=== PATIENT | female | born 2000 | race Caucasian/White ===

== ENCOUNTER 2025-07-21 12:07 | Emergency (ER) | payer SELFPAY ==
[2025-07-21 12:20] VITALS: BP 134/75; PULSE 82; RESP 16; TEMP 36.2; O2SAT 100
--- OUTSIDE RECORDS SUMMARY | 2025-07-21 12:56 | XMS_ITS | Clinical Summary ---
Author Organization [facility] Address [address] [place] [id number] Care Team Providers Care Bricklayer Apprentice Name Role Phone Andrew Scott MD Primary Care Provider [phone] Social History Tobacco Use Types Packs/Day Years Used Date Smoking Tobacco: Never Assessed Comments Unknown Sex and Gender Information Value Date Recorded Sex Assigned at Not on file Legal Sex Female 4:33 PM CDT Gender Identity Not on file Sexual Orientation Not on file Plan of Treatment Health Maintenance Due Date Last Done Comments Annual Physical 2003 HPV Vaccines (1 - 3-dose series) 2015 Hepatitis C 2018 Hepatitis B Vaccines (1 of 3 - 19+ 3-dose series) 2019 Cervical Cancer Screening Pa p Smear (Age 21 to 29) Every 3 Years 04/17/2025 04/17/2022 Cervical Cancer Screening 04/17/2025 COVID-19 Vaccine ( - 2024-2 6 season) 2025 Influenza Adult (#1) 2025 DTaP, Tdap and Td Vaccines ( 2 - Td or Tdap) 10/21/2031 10/20/2021 Hepatitis A Vaccines Aged Out No long er eligible based on patient's age to complete this topic Meningococcal B Vaccine Aged Out No l onger eligible based on patient's age to complete this topic Meningococcal Vaccine Aged Out No pilar kip eligible based on patient's age to complete this topic Pneumococcal Vaccine: Pediat rics (0 to 5 Years) and At-Risk Patients (6 to 49 Years) Aged Out No longer eligi ble based on patient's age to complete this topic RSV Immunizations Under 20 Months Aged Out No longer eligible based on patient's age to complete this topic Insurance [facility] Care Teams Bricklayer Apprentice Relationship Specialty Start Date End Date Andrew Scott MD [address] [place] [address] [place] [id number] PCP - General FAMILY PRACTICE 03/27/24
--- OUTSIDE RECORDS SUMMARY | 2025-07-21 12:56 | XMS_ITS | Data Portability ---
Author Organization [facility] Address [address] [place] [address] Care Team Providers Care Manager Of Financial Reporting Name Role Phone BRIT SCOTT Primary Care Provider Assessment Encounter Date Assessment Date Assessment LastModified by Organization Details LastModified Time 12/12/2021 12/12/2021 Patient is ___weeks . Discussed plan. Not available 12/12/2021 12:15:17 01/18/2022 01/18/2022 Normal exam May resume normal activities contraceptive plan-- declines depression and anxiety precautions given. denies SI/HI. declines medication. will work on finding counselor. FU for WWE 2 , [email or web address] Not available 01/18/2022 15:45:58 03/22/2022 03/22/2022 healthy female exam GC/CT/trich done declines further std testing first pap done contraception- declines HPV vaccine-done TSH today. results to pcp to prescribe from now on FU 1 year or prn [email or web address] Not available 03/22/2022 15:07:06 04/17/2022 04/17/2022 repap for insufficient cells no charge visit [email or web address] Not available 04/17/2022 16:02:54 Plan of Treatment Reminders Order Date Submit Date Provider Last Modified By Organization Details Last Modified Time Details Appointments None recorded. Lab TSH, serum or plasma 2021 022 [facility] (Lab), [address], [place], [address], 14:48:58 Referral None recorded. Procedures None recorded. Surgeries None recorded. Imaging None recorded. Medication Orders Euthyrox 50 mcg tablet 2021 [facility] [address], [address], [place], [address], 14:45:37 Patient TargetsNo targets recorded. Patient InstructionsNo instructions recorded. Reason for Referral None Reported. Results Created Date Observation Date Name Description Value Unit Range Abnormal Flag Note LastModifiedBy Organization Detail LastModifiedTime 11/26/1911/25/2021 CULTU RE: GROUP B STREP SCREE N result report SEE RESULT S BELOW Test: Cultu re: Group B Strep Scree n - Vagin al/Re ctal Speci men Sourc e: Vagin a/Rec katrina Speci men Type: Vagin al/Re ctal Speci men Date: 1:46 PM Resul t Date: 2021 10:50 AM Resul t Statu s: Final resul t Abnor mal: No Resul ting Lab: [facility] [address] [facility] [address] Tel: CULTU RE ----- ----- ----- --- No Group B strep isola keenan at 2 days (stephon ctive broth enhan cemen t) Not Available [facility] (Lab) [address], [place], [address], 11/28/2021 11:52:48 12/06/1912/05/2021 TSH, REFLE X FREE T4 TSH 3.47 uIU/m L 0.30-5 .33 Not Available [facility] (Lab) [address], [place], [address], 12/06/2021 05:05:10 03/22/20 22 03/22/2022 T4 FREE T4, free 1.22 NG/dL 0.60-1 .40 Not Available [facility] [address] [place], [address], 03/23/2022 08:24:09 03/22/20 22 03/22/2022 TSH, REFLE X FREE T4 TSH 0.01 uIU/m L 0.30-5 .33 low Not Available [facility] [address] [place], [address], 03/23/2022 08:24:09 03/22/20 22 03/22/2022 IMAGE GUIDE D PAP, REFLE X HPV IF ASCUS ONLY image guided Pap, reflex HPV ASCUS only SEE RESULT S BELOW CASE REPOR T: Cytol ogy Gynec ologi timur Repor t Case: [id number] Autho mariza manuel Provi jose francisco: Meggan Lee, MD Conley cted: 03/22 1614 Order ing Locat ion: [place] Patho logy Recei edy: 03/23 0754 First Scree n: Bonny Pompa ret, CT Rescr een: Florin Alex Speci men: Scree kathleen Pap - Image d, Cervi x STATE MENT OF ADEQU ACY: Unsat isfac tory for evalu ation . FINAL DIAGN OSIS: Unsat isfac tory for evalu ation . Scant squam ous cellu larit y due to exces s inter ferin g blood . Elect david jalloh julien d by Florin Alex on 022 at 10:05 AM ----- ----- ----- ----- ----- ----- ----- ----- ----- ----- ----- ----- ----- ----- ----- ----- ----- ---- COMME NT: Note: This speci men was revie wed by a Cytot echno logis t and/o r Patho logis t (as indic ated in this repor t) after evalu ation using the Thinp rep Imagi ng Syste m. CLINI TIMUR INFOR MATIO N: Menst rual Statu s: LMP (if appli cable ): Clini timur Histo ry/Pr eviou s Pap: Type of Neopl gris (if appli cable ): Signi fican t Clini timur Findi ngs: Other Histo ry: Hormo isaias (if appli cable ): Not Available [facility] [address] [place] [address], [phone], 03/28/2022 11:08:39 03/22/20 22 03/22/2022 TRICH OMONA S VAGIN HALIE (RRNA ) trichomonas vaginalis ribosomal RNA (rrna) Negati ve negati ve Not Available [facility] [address] [place] [address], [phone], 03/28/2022 11:08:39 03/22/20 22 03/22/2022 CT/GC (EVER) , THINP REP VIAL chlamydia trachomatis, PCR Negati ve negati ve Not Available [facility] [address] [place] [address], [phone], 03/28/2022 11:08:40 03/22/20 22 03/22/2022 CT/GC (EVER) , THINP REP VIAL neisseria gonorrhoeae, PCR Negati ve negati ve Not Available [facility] [address] [place] [address], [phone], 03/28/2022 11:08:40 04/17/20 22 04/17/2022 IMAGE GUIDE D PAP, REFLE X HPV IF ASCUS ONLY image guided Pap, reflex HPV ASCUS only SEE RESULT S BELOW CASE REPOR T: Cytol ogy Gynec ologi timur Repor t Case: [id number] Autho mariza jackson Provi jose francisco: Meggan Lee MD Colle cted: 04/17 1711 Order ing Locat ion: [place] Patho [place]y Recei edy: 04/18 0336 First Scree n: DeLuc a, Deborah, CT Rescr een: Nacha mpass ak, Tad kraus, CT Speci men: Scree kathleen Pap - Image d, Cervi x STATE MENT OF ADEQU ACY: Satis facto ry for evalu ation Trans forma tion zone compo nent prese nt FINAL DIAGN OSIS: Negat larry for Intra epith elial Lesio n or Gilberto santiago (NIL) . Elect david jalloh julien d by Gail rose, Tad kraus, CT on 022 at 12:50 PM ----- ----- ----- ----- ----- ----- ----- ----- ----- ----- ----- ----- ----- ----- ----- ----- ----- ---- COMME NT: Note: This speci men was revie wed by a Cytot echno logis t and/o r Patho logis t (as indic ated in this repor t) after evalu ation using the Thinp rep Imagi ng Syste m. CLINI TIMUR INFOR MATIO N: Menst rual Statu s: LMP (if appli cable ): Clini timur Histo ry/Pr eviou s Pap: Type of Neopl gris (if appli cable ): Signi fican t Clini timur Findi ngs: Other Histo ry: Hormo isaias (if appli cable ): PAP EDUCA MORELIA L NOTE: The Pap Test is a scree kathleen test with an inher ent false negat larry rate. Liqui d-bas ed sampl ing may decre ase, but will not elimi naren, false negat larry resul ts. A negat larry resul t does not precl ude the prese nce and/o r devel opmen t of disea se, since the prese nce of abnor mal cells in the sampl e depen ds on the locat ion of the lesio n and sampl ing techn ique. Ez nued regul ar scree kathleen is the best metho d of cance r preve ntion . If repor keenan cytol ogic findi ng do not corre late with physi timur and/o r histo rical findi ngs, furth er inves tigat ion is recom hiram d, as clini cherry laws nted. Not Available [facility] [address], [place], [address], 04/22/2022 13:52:32 11/10/19 22 11/09/2021 non-s tress test No observ ation record ed. [email or web address] [facility] [address], [place], [address], 11/09/2021 17:05:06 Result Notes None recorded. Problems Name Problem SNOMED Code Status Onset Date Resolution Date Notes Provider Name and Address Organization Details Recorded Time Cyst of ovary 62604300 Completed smaller at 12 weeks Meggan Palma MD [address], [place], [address], [facility] 2 12:01:02 Hypogly emia 767011880 Completed given recommen dations on maintain ing blood sugar Trish houston [facility] 2 12:18:19 Pregnanc y 26433009 Completed 202001/06/2022 Trish houston [facility] 2 12:18:26 Hashimot o thyroidi tis 75819847 Active 2020 TSH repeat 36-37. 419 increase synthroi d to 75mcg. repeat TSH at pp visit. Trish houston [facility] 2 12:18:20 Hashimot o thyroidi tis 70731339 Completed 2020 TSH repeat 36-37. 4/19 increase synthroi d to 75mcg. repeat TSH at pp visit. Trish houston [facility] 2 12:18:19 Uterine size for dates discrepa ncy [id number] Completed 2021 Growth u/s 3/8 - 35% Trish houston, [facility] 2 12:18:19 Endometr iosis of pelvis 18105478 Active 2021 Meggan Palma MD [address], [place], [address], [facility] 2 15:43:45 Hypothyr oidism 89744060 Active 2021 Meggan Palma MD [address], [place], [address], [facility] 2 15:45:06 Problem Notes None recorded. Procedures Surgical History Date Name Laterality Status Provider Name and Address Organization Details Recorded Time 0 Ovarian Cystectomy completed Shauna Muir [facility] 12/20/2020 15:12:26 0 ear excision completed [facility] 06/16/2021 09:39:58 9 ear excision completed [facility] 06/16/2021 09:39:52 1 Remove tonsils and adenoids completed [facility] 06/16/2021 10:01:42 6 removal of silastic tubes from ear completed [facility] 06/16/2021 10:02:11 4 removal of silastic tubes from ear completed [facility] 06/16/2021 10:02:23 Imaging Results None recorded. Procedure Notes None recorded. Medical Equipment None Reported. Allergies Allergen ID Allergen Name Allergen Category Reaction Reaction Severity Criticality Documentation Date Start Date Code Code System Note Provider Name and Address Organization Details Recorded Time 831 grass pollen environme nt,medica tion Not available Not available Not available 01/20/[address] [facility] [place] - [facility] 15:10:07 Medications Name Sig Start Date Stop Date Status Note LastModified by Organization Details LastModified Time acetaminoph en 325 mg tablet 12/20 completed Not Available Not Available Not Available azithromyci n 250 mg tablet TAKE 2 TABLETS BY MOUTH ON DAY 1, AND THEN TAKE 1 TABLET BY MOUTH ONCE A DAY ON DAY 2 THROUGH DAY 5 active Not Available Not Available No t Available fluconazole 150 mg tablet TAKE 1 TABLET BY MOUTH EVERY 3 DAYS active Not Available Not Available No t Available hydrocodone 5 mg-acetamin ophen 325 mg tablet Take 1 tablet every 6 hours by oral route. 12/20 completed Not Available Not Available Not Available ondansetron HCl 4 mg tablet 12/20 completed Not Available Not Available Not Available clonazepam 0.5 mg tablet 05/10 completed Not Available Not Available Not Available oxycodone 5 mg/5 mL oral solution 12/20 completed Not Available Not Available Not Available sulfamethox azole 800 mg-trimetho prim 160 mg tablet 12/20 completed Not Available Not Available Not Available Euthyrox 25 mcg tablet Take 1 tablet every day by oral route as directed. 09/09 completed Not Available Not Available Not Available amoxicillin 875 mg tablet 08/08 completed Not Available Not Available Not Available Euthyrox 75 mcg tablet TAKE 1 TABLET BY MOUTH ONCE DAILY active Not Available Not Available No t Available meclizine 25 mg tablet 12/20 completed Not Available Not Available Not Available levothyroxi ne 50 mcg tablet Take 1 tablet by mouth once daily active Not Available Not Available No t Available ibuprofen 400 mg tablet 12/20 completed Not Available Not Available Not Available sertraline 25 mg tablet TAKE 1 TABLET BY MOUTH ONCE DAILY DIRECTED active Not Available Not Available No t Available diclofenac sodium 75 mg tablet,olga yed release TAKE 1 TABLET BY MOUTH TWICE DAILY NEEDED active Not Available Not Available No t Available fluvoxamine 50 mg tablet TAKE 1 TABLET BY MOUTH ONCE DAILY AT BEDTIME active Not Available Not Available No t Available 09/08 (21) 1 mg-20 mcg tablet Take 1 tablet every day by oral route. 12/20 completed Not Available Not Available Not Available ciprofloxac in 0.3 %-dexametha sone 0.1 % ear drops,suspe nsion INSTILL 3 DROPS INTO AFFECTED EAR(S) TWICE DAILY FOR 7 DAYS active Not Available Not Available No t Available active Not Available Not Avai lable Not Available Paxlovid 300 mg (150 mg x 2)-100 mg tablets in a dose pack TAKE 3 TABLETS TOGETHER (TWO 150 MG NIRMATREL VIR TABLETS AND ONE 100 MG RITONAVIR TABLET) BY MOUTH TWICE DAILY FOR 5 DAYS. active Not Available Not Available No t Available Vitals Date Recorded Body height Body mass index (BMI) Body weight Systolic And Diastolic Provider Name and Address Organization Details Last Updated DateTime 12/05/2021 162.56 cm 24.2 kg/m2 27538.524 17 g 120/81 mm[Hg] Lisa Charlton [facility] 12/05/2021 12:16:10 Date Recorded Body height Body mass index (BMI) Body weight Systolic And Diastolic Provider Name and Address Organization Details Last Updated DateTime 12/12/2021 162.56 cm 25.1 kg/m2 69833.486 02 g 122/82 mm[Hg] Shauna Muir [facility] 12/12/2021 12:15:40 Date Recorded Body height Body mass index (BMI) Body weight Systolic And Diastolic Provider Name and Address Organization Details Last Updated DateTime 01/18/2022 162.56 cm 21.1 kg/m2 18520.86 g 118/79 mm[Hg] [facility] 01/18/2022 15:29:27 Date Recorded Body height Body mass index (BMI) Body weight Systolic And Diastolic Provider Name and Address Organization Details Last Updated DateTime 03/22/2022 162.56 cm 20.9 kg/m2 78255.27 g 103/66 mm[Hg] [facility] 03/22/2022 14:45:22 Date Recorded Body height Body mass index (BMI) Body weight Systolic And Diastolic Provider Name and Address Organization Details Last Updated DateTime 04/17/2022 162.56 cm 20.3 kg/m2 67279.9 g 130/73 mm[Hg] Nelly Coulter [facility] 04/17/2022 15:50:01 Social History Question Answer Notes LastModified by Organizat ion Details LastModified Time Tobacco Smoking Status Current Every Day Smoker Octavia Johnson celso, [facility] 05/10/2021 15:37:45 Do You Have An Advance Directive? No Information n ot available 12/20/2020 How Many Years Have You Consumed Alcohol? 1 [email or web address] Information not available 05/10/2021 Are You Blind Or Do You Have Difficulty Seeing? No Information n ot available 12/20/2020 What Is Your Level Of Caffeine Consumption? Moderate Information not available 12/20/2020 How Much Tobacco Do You Chew? None Information not available 12/20/2020 In The 14 Days Before Symptom Onset, Have You Had Close Contact With A Laboratory-confirm ed COVID-19 While That Case Was Ill? No Information n ot available 12/20/2020 In The 14 Days Before Symptom Onset, Have You Had Close Contact With A Person Who Is Under Investigation For COVID-19 While That Person Was Ill? No Information not available 12/20/2020 Have You Been To An Area Known To Be High Risk For COVID-19? No Information not available 12/20/2020 Are You Deaf Or Do You Have Serious Difficulty Hearing? No [email or web address] Information not available 11/25/2021 What Type Of Diet Are You Following? REGULAR Information n ot available 12/20/2020 What Is The Highest Grade Or Level Of School You Have Completed Or The Highest Degree You Have Received? [id number] Information not available 12/20/2020 Are There Any Guns Present In Your Home? No Information not available 12/20/2020 Do You Use Protection During Sex? No Information not available 12/20/2020 Do You Use Your Seat Belt Or Car Seat Routinely? Yes Information not available 12/20/2020 Do You Have Smoke And Carbon Monoxide Detectors In Your Home? Yes Information not available 12/20/2020 At What Age Did You Start Smoking Tobacco? 16 Information not available 12/20/2020 How Much Tobacco Do You Smoke? No Information not available 12/20/2020 Do You Use Sunscreen Routinely? No Information not available 12/20/2020 How Many Years Have You Smoked Tobacco? 3 Information not available 12/20/2020 Have You Used IV Drugs? No Information not available 12/20/2020 Do You Have Difficulty Walking Or Climbing Stairs? No [email or web address] Information not available 11/25/2021 Sex: Unknown Functional Status Question Answer Note LastModified by Organizat ion Details LastModified Time Do you use any illicit or recreational drugs? No Information not available 12/20/2020 Do you or have you ever used any other forms of tobacco or nicotine? Yes [email or web address] Information not available 05/10/2021 What is your level of alcohol consumption? None Information not available 12/20/2020 Are you able to walk independently without assistance or assistive devices? [email or web address] Information not available 12/20/2020 Are you able to care for yourself independently? 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 No [email or web address] Information not available 11/25/2021 Do you or have you ever used e-cigarettes or vape? Current user of electronic cigarettes [email or web address] Information not available 05/10/2021 What is your exercise level? Occasional Information not available 12/20/2020 Mental Status Question Answer Note LastModified by Organization D etails LastModified Time Do you feel stressed (tense, restless, nervous, or anxious, or unable to sleep at night)? [id number] Information not available 12/20/2020 Family History Relationship Description Onset Age of this Age Resolved Age Notes LastModified by Organization Details LastModified Time Maternal Grandfather Anemia [email or web address] Not available 2019 16:54:55 Maternal Grandfather Carcinoma in situ of colon [email or web address] Not available 2021 14:31:04 Maternal Grandfather Heart disease [email or web address] Not available 2019 16:57:53 Maternal Grandfather Hypertensive disorder [email or web address] Not available 2019 17:00:58 Paternal Grandmother Carcinoma in situ of breast [email or web address] Not available 2021 14:31:04 Maternal Grandmother Malignant neoplasm of cervix uteri [email or web address] Not available 09/2019 16:55:58 Maternal Grandmother Heart disease [email or web address] Not available 2019 16:57:53 Maternal Grandmother Hyperlipidem ia [email or web address] Not available 2021 14:31:05 Maternal Grandmother Hypertensive disorder [email or web address] Not available 2019 17:00:58 Mother Cyst of ovary [email or web address] Not available 2021 14:31:05 Mother Disorder of thyroid gland [email or web address] Not available 2019 17:01:57 Maternal Aunt Cyst of ovary [email or web address] Not available 2021 14:31:05 Brother Disorder of thyroid gland [email or web address] Not available 2019 17:01:57 Medical History Condition Response Allergies (Food, seasonal, environmental ) Y Other Y Breast Cancer N Drug/Latex Allergies/Reactions N Blood Transfusion N Dermatologic Disorders N Lung Disease N Defects or Inherited Disease N Breast Problem N Gestational Diabetes N Hematologic disorders N Anesthesia Complications N History of STI N Deep Vein Thrombosis N Polycystic ovary syndrome N Anxiety Disorder N Autoimmune disease Y Arthritis N Infertility N Polyps N Acid Reflux (GERD) N History of abnormal pap N Cancer N Stroke N Varicosities N Neurologic/Epilepsy Y Endometriosis Y High Cholesterol N Headaches N Fibromyalgia N Kidney Disease N Heart Problems N Kidney or Bladder Problems N Thyroid Problems Y GI Problems N Eating Disorder N Anemia N Art (IVF or FET) N Psychiatric Illness N Ovarian Cancer N Diabetes N Pulmonary (TB, Asthma) N Hepatitis/Liver Disease N No Past Medical History N Eczema N Urinary Tract Infection N Abuse/Domestic Violence N Asthma N Trauma/Violence N Depression/ depression N Heart Disease N Pre-Eclampsia N Hypertension N Osteoporosis N Thrombophilias N Gynecological History Statement/Question Response Abnormal Pap N Date of Last Mammogram Flow Moderate Date of LMP 03/10/2021 On BCP's at Conception? N N Was last menstrual period normal Y STIs/STDs N Duration of Flow (days) 5 Current Control Method None Frequency of Cycle (Q days) 40 Sexually Active? Y Age of first menstrual cycle 12 Date of Last Pap Smear Sexual Problems? N Desired Control Method None LMP Approximate N Obstetrics History GPAL:G 1 P 1 0 0 1 Type Value Full Term 1 Living 1 Total 1 Past Encounters Encounter ID Performer Location Encounter Start Date Encounter Closed Date Diagnosis/Indication Diagnosis SNOMED-CT Code Diagnosis ICD10 Code Diagnosis IMO Codes Diagnosis Note [id number] Wilfredo Salinas MD [facility] [address] [address] 01/20/2020 16:37:11 01/28/2020 13:15:51 Cyst of ovary 35987560 N83.209 This patient is a 19-year-ol d female with a very large ovarian cyst. She has pelvic pain that is severe. She would like definitive surgical treatment. We have agreed to perform laparoscop ic ovarian cystectomy . She understand s the risk, benefits, and alternativ es. She has completed the informed consent process and is ready to proceed. We spent 40 minutes face-to-fa ce. More than 50% of that was counseling . This is a complex problem which required significan t discussion of the etiology, treatment, natural history, risks and benefits associated with ovarian cyst and their treatment. [id number] Wilfredo Salinas MD [facility] [address] [address] 02/02/2020 14:37:20 02/02/2020 16:01:12 Abnormal uterine bleeding [id number] 9100 N93.9 This patient is a 19-year-ol d female who presents forpostop follow-up. She had a laparoscop ic ovarian cystectomy tony marinelli of endometrio sis.Her incisions are clean dry and intact.She is recovering normally from the surgery.Th e patient reports today that she has irregular periodsthe y, at unpredicta ble times. Sometimes 3 months apart.We are going toobtain sex hormone laboratory evaluation .Along with thyroid and prolactin. She will return after she gets her blood drawnto discuss results and treatment of abnormal uterine bleeding. She was warned not to have abnormalut erine bleeding for prolonged period of time due to endometria l cancer risk. [id number] Wilfredo Salinas MD [facility] [address],[facility] [place] [address] 04/09/2020 14:48:03 04/09/2020 15:41:28 Abnormal uterine bleeding [id number] 9100 N93.9 This patient is a 19-year-ol d female who presents for follow-up for irregular menses. She recently had surgery for endometrio sis. She is pain-free from her endometrio sis at this time secondary to her surgery. We talked about adjunct therapy for endometrio sis after surgery. She was gone all her medical options. We talked about contracept ion. We spent 25 minutes face-to-fa ce discussing her options in detail. Ultimately she decided to resume the 0 combined oral contracept larry pill. She will follow up as needed. She was given detailed instructio ns on oral contracept larry pills. [id number] Wilfredo Salinas MD [facility] [address],[place] [address] 12/20/2020 15:01:25 12/20/2020 16:38:59 Abnormal uterine bleeding [id number] 9100 N93.9 This patient is a 20 year female with abnormal uterine bleeding. Her menses appeared irregular but there about 5 weeks apart. She is using ovulation predictor kits and having trouble getting positive values. BA bleeding is consistent ly 7 days with 1 heavy day beginning. She has cramping before her menses. She has been trying for years to get without success. We discussed infertilit y workup. We discussed abnormal uterine bleeding evaluation . We discussed hysterosal pingogram. We discussed semen analysis. We discussed these Clomid and hcg to stimulate ovulation. We agreed to move forward with evaluation of abnormal uterine bleeding and infertilit y. She will have labs today. She will have an HSG next week. We will attempt to get semen analysis. labs today should give us an idea of the she ovulated. Need to confirm she is not for HSG. Female infertility [id number] N97.9 [id number] Rozina Hannon CNM [facility] [address],[facility] [place] [address] 05/10/2021 15:23:05 05/10/2021 17:26:56 test positive [id number] Z32.01 Risk factors addressed: Tobacco Cessation, Safe Sexual Practices, environmen judy, work hazards, travel restrictio ns, seat belt use.Eat a health well balanced diet, avoid alcohol, tobacco, and street drugs.Enga ge in daily low impact exercise, avoid temperatur e extremes, and cat, rodent, and bird feces.Avoi d travel to areas where zika virus is a concern.Of fered cf/sma/nip t. Considerin g all 3. Handouts given and discussed with patient.Ch ildbirth classes recommende d.New OB sheet given.If previous , counseling .Pt verbalizes that she understand s the importance of above instructio ns.Encoura ged flu and covid vaccine. Informed of acog recommenda tion. Declined based on gnosticism beliefs.Al l questions were answered.P atient reminded to have annual well woman examinatio n and address [facility] . [id number] Wilfredo Salinas MD [facility] [address],[place] [address] 05/10/2021 15:28:26 05/10/2021 17:33:27 Uterine size for dates discrepancy 453127776 O26.849 05847 Wilfredo Salinas MD [facility] [address],[place] [address] 06/16/2021 09:19:25 06/16/2021 09:51:38 Cyst of ovary in [id number] 3959814 O34.80 Z3A.12 08875 Wilfredo Salinas MD [facility] [address],[place] [address] 06/16/2021 09:20:33 06/16/2021 11:49:46 Routine care [id number] Z34.00 [id number] Meggan Palma MD [facility] [address],[place] [address] 07/11/2021 12:29:28 07/11/2021 14:02:11 Routine care 122099257 Z34.02 Emelia thyroiditis 21 568728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
[2025-07-21] MEDS: KETOROLAC (*BKC) 60 MG/2 ML VIAL IM (13:34)
--- NOTE | 2025-07-21 17:36 | ED_ITS ---
HPI - General Adult General Chief complaint: Unspecified <ALBANIA Silva - Last Filed: 07/21/25 17:55> Stated complaint: breast pain <ALBANIA Silva - Last Filed: 07/21/25 17:55> Time Seen by Provider: 07/21/25 12:22 <ALBANIA Silva - Last Filed: 07/21/25 17:55> History of Present Illness HPI narrative: 24-year-old female presenting with right sided upper outer quadrant breast pain for the last week and a half. Patient states she went to her local health department where they prescribed her clindamycin for a breast abscess. She reports that she has taken the antibiotic for 7 days out of the 10 day course with no improvement in her symptoms. She endorses no previous occurrences. Herpetic they also reports she measured a fever at 100? yesterday but is reporting no fevers today. Denies the presence of any overlying skin changes, nipple discharge or nipple changes, nausea/vomiting, chest pain/shortness breath, or abdominal pain. <ALBANIA Silva - Last Filed: 07/21/25 17:55> Related Data Allergies/adverse reactions: Allergies Allergy/AdvReac Type Severity Reaction Status Date / Time No Known Allergies Allergy Verified 07/21/25 12:27 <ALBANIA Silva - Last Filed: 07/21/25 17:55> Review of Systems Review of Systems: All systems reviewed & are unremarkable except as noted in HPI and below <ALBANIA Silva - Last Filed: 07/21/25 17:55> Exam Narrative: GENERAL: No acute distress. HEAD: Normocephalic, atraumatic. EYES: PERRLA and EOMI. ENT: Nares clear, no rhinorrhea or epistaxis. Mucous membranes moist. Oropharynx without tonsillar hypertrophy exudate or other lesions. Bilateral TMs pearly moreno non-bulging NECK: Supple. No adenopathy or masses. No carotid bruits or JVD CHEST: Clear to auscultation. No respiratory distress. No wheezes rales or rhonchi HEART: Regular rate and rhythm. No murmur heard. Normal peripheral pulses. ABDOMEN: Soft, nontender, nondistended, normal active bowel sounds. BREAST: R breast no overlying skin changes, lumps/bumps, fluctuance, or nipple changes. EXTREMITIES: Normal range of motion. No edema. SKIN: Warm, dry, no rash. NEURO: No focal deficits. Alert and oriented x3. PSYCH: Normal mood and affect <ALBANIA Silva - Last Filed: 07/21/25 17:55> Course CLINICAL DOCUMENTATION IMPROVEMENT SPECIALIST/PA Physician Supervision This visit was performed by both a physician and an APC; I performed all aspects of the medical decision making component of this evaluation as documented. <Lila Jenkins MD - Last Filed: 07/21/25 18:10> Vital Signs Vital signs: Vital Signs Temperature 97.2 F L 07/21/25 12:20 Pulse Rate 82 07/21/25 12:20 Respiratory Rate 16 07/21/25 12:20 Blood Pressure 134/75 07/21/25 12:20 Pulse Oximetry 100 07/21/25 12:20 Oxygen Delivery Room Air 07/21/25 12:20 Temperature 97.2 F L 07/21/25 12:20 Pulse Rate 82 07/21/25 12:20 Respiratory Rate 16 07/21/25 12:20 Blood Pressure 134/75 07/21/25 12:20 Pulse Oximetry 100 07/21/25 12:20 Oxygen Delivery Room Air 07/21/25 12:20 <ALBANIA Silva - Last Filed: 07/21/25 17:55> Vital Signs Temperature 97.2 F L 07/21/25 12:20 Pulse Rate 82 07/21/25 12:20 Respiratory Rate 16 07/21/25 12:20 Blood Pressure 134/75 07/21/25 12:20 Pulse Oximetry 100 07/21/25 12:20 Oxygen Delivery Room Air 07/21/25 12:20 Temperature 97.2 F L 07/21/25 12:20 Pulse Rate 82 07/21/25 12:20 Respiratory Rate 16 07/21/25 12:20 Blood Pressure 134/75 07/21/25 12:20 Pulse Oximetry 100 07/21/25 12:20 Oxygen Delivery Room Air 07/21/25 12:20 <Lila Jenkins MD - Last Filed: 07/21/25 18:10> MDM MDM Narrative Medical decision making narrative: 24-year-old female presenting with right sided upper outer quadrant breast pain for the last week and a half. Patient states she went to her local health department where they prescribed her clindamycin for a breast abscess. She reports that she has taken the antibiotic for 7 days out of the 10 day course with no improvement in her symptoms. She endorses no previous occurrences. Herpetic they also reports she measured a fever at 100? yesterday but is reporting no fevers today. Denies the presence of any overlying skin changes, nipple discharge or nipple changes, nausea/vomiting, chest pain/shortness breath, or abdominal pain. She states that her paternal grandmother was diagnosed with breast cancer in her 30s and 50s and passed from it. She also reports maternal great grandmother was recently diagnosed with breast cancer. Denies occurrences in any of her first-degree relatives. Upon my initial assessment patient is nontoxic with stable vitals including no fever or tachycardia. On exam, I am appreciating no changes to her right breast including no erythema, warmth, swelling, fluctuance, lumps/bumps, nipple discharge, or nipple changes. Ultrasound demonstrated no acute signs of infection as well. Administered Toradol which improved patient's symptoms. Recommended patient take Tylenol and other anti-inflammatories as needed for pain and to follow up outpatient with her PCP. Differential diagnosis and treatment plan were discussed with the patient. Patient agrees with discussion and after shared medical decision making agrees with plan of care. All questions were answered to the patient's satisfaction. The patient is appropriate for outpatient treatment and follow-up. Given reasons to return. <ALBANIA Silva - Last Filed: 07/21/25 17:55> Differential Diagnosis Differential Diagnosis: Differential diagnostic considerations for acute breast pain include fibrocystic changes, hormonal fluctuations, breast cysts, fibroadenoma, mast itis/abscess, breast cancer, musculoskeletal pain, or shingles. <ALBANIA Silva - Last Filed: 07/21/25 17:55> Discharge Plan Discharge Clinical Impression: Acute breast pain <ALBANIA Silva - Last Filed: 07/21/25 17:55> Patient Disposition: Home <ALBANIA Silva - Last Filed: 07/21/25 17:55> Condition: Stable <ALBANIA Silva - Last Filed: 07/21/25 17:55> Instructions: Breast Self Exam for Women (ED) <ALBANIA Silva - Last Filed: 07/21/25 17:55> Additional Instructions: Return for any new swelling, redness, warmth, abnormal discharge, nausea/vomiting, fevers/chills, or any other symptoms concerning to you. Take anti-inflammatories (Aleve, Ibuprofen, Naproxen, etc) or Tylenol as needed for pain. Follow up with your PCP. <ALBANIA Silva - Last Filed: 07/21/25 17:55> Patient Language: French <ALBANIA Silva - Last Filed: 07/21/25 17:55> Follow-up/Referrals: PHYSICIAN NOT ON STAFF,NONSTAFF [Primary Care Provider] <ALBANIA Silva - Last Filed: 07/21/25 17:55>
== END 2025-07-21 14:27 | disposition home or self-care (01) ==
DX: N64.4 Mastodynia (principal)
CPT/HCPCS: 96372; 99283; J1885